=== PATIENT | female | born 1935 | race American Indian/Alaskan Native ===

== ENCOUNTER 2018-01-09 14:30 | Emergency (ER) | payer MEDICARE, OTHER ==
[2018-01-09] MEDS ORDERED: Sodium Chloride 0.9% 1,000 ML IV ONE (14:33)
--- NOTE | 2018-01-09 15:05 | EDM.PDOC ---
ED HPI GENERAL MEDICAL PROBLEM - General Stated Complaint: SLURRING WORDS Time Seen by Provider: 01/09/18 14:32 Source of Information: Reports: Patient History Limitations: Reports: No Limitations - History of Present Illness INITIAL COMMENTS - FREE TEXT/NARRATIVE: HISTORY AND PHYSICAL: History of present illness: Patient is a 82-year-old female who presents to the emergency room today as family members felt like she was slurring her speech this morning. She reports that she had went to bed last night and felt well. Did have some difficulty falling asleep but states this is normal for her. She states she slept in this morning, which is unusual for her. The daughter states they were having a conversation about baseball when she felt like her speech was slurred. The patient states she felt like she could not find the words to come out. This happened about 45 minutes prior to arrival. She states this resolved within a few minutes. Patient states it was because "my teeth were out" while trying to talk with her daughter (whom she lives with). She states she did wake up with bladder pain which felt like sharp needles to her pelvis. Denies any dysuria or difficulty starting her stream. Patient states she has degenerative disc disease and chronic neck pain which does cause frequent headaches. Currently has a mild headache, which she states is normal for her and has no new neurological symptoms at this time. She had no musculoskeletal weakness, confusion, change in vision or syncope. The patient is alert and oriented. She denies any fever, chills, chest pain, shortness of breath, cough. Denies any abdominal pain, nausea, vomiting, diarrhea or constipation. Past medical history of cardiac stents 2, hypertension and type 2 diabetes. Review of systems: As per history of present illness and below otherwise all systems reviewed and negative. Past medical history: As per history of present illness and as reviewed below otherwise noncontributory. Surgical history: As per history of present illness and as reviewed below otherwise noncontributory. Social history: No reported history of drug or alcohol abuse. Family history: As per history of present illness and as reviewed below otherwise noncontributory. Physical exam: General: Well-developed and well-nourished 82-year-old female. Alert and oriented. Nontoxic appearing and in no acute distress. HEENT: Atraumatic, normocephalic, pupils equal and reactive bilaterally, negative for conjunctival pallor or scleral icterus, mucous membranes moist, throat clear, neck supple, nontender, trachea midline. No drooling or trismus noted. No meningeal signs Lungs: Clear to auscultation, breath sounds equal bilaterally, chest nontender. Heart: S1S2, regular rate and rhythm without overt murmur Abdomen: Soft, nondistended, nontender. Negative for masses or hepatosplenomegaly. Negative for costovertebral tenderness. Pelvis: Stable nontender. Genitourinary: Deferred. Rectal: Deferred. Skin: Intact, warm, dry. No lesions or rashes noted. Extremities: Atraumatic, moves all per self without any weakness or deficits bilaterally. Strong pedal and radial pulses bilaterally. Capillary refill less than 3 seconds to distal extremities. She is negative for cords or calf pain. Neurovascular unremarkable. Neuro: Awake, alert, oriented. Cranial nerves II through XII unremarkable. Cerebellum unremarkable. Motor and sensory unremarkable throughout. Exam nonfocal. Notes: Blood sugar this morning upon awakening was 117 per family. EMS had a blood sugar reading of 238 after breakfast. GCS 0. No neurological deficets or muscular weakness noted. Vital signs are stable. Lab work currently is unremarkable. I'm still waiting on a urinalysis. The head CT is negative for intracranial bleeding, fractures or masses. Chest x-ray is negative. Patient states she has been asymptomatic and has no complaints since arrival to the emergency department. She continues to talk about a bladder mesh that she had for a bladder lift and believes that this was the cause of her abdominal/urinary symptoms this morning. Dr Smith was consulted on this case. He is agreeable to keeping this patient over night on telemetry for observation. Initially patient/family wanted to stay overnight for observation. Upon going in and talking with the patient that Dr. Smith have accepted her, she now declines. She is aware of the risks of leaving and accepts those risks. The daughter at the bedside joined in on this conversation and is also aware. She states she will return if symptoms return or new symptoms develop. She'll be discharged to home. Diagnostics: CBC, CMP, troponin, EKG, one view chest x-ray, head CT, PT/INR, UA Therapeutics: IV fluids Impression: TIA Plan: 1. You declined admission today. Please return to the emergency room if symptoms return or new symptoms develop. 2. Follow-up with your primary care provider next week. Return to the ED as needed and as discussed. Definitive disposition and diagnosis as appropriate pending reevaluation and review of above. Onset: Today Duration: Hour(s): Location: Reports: Generalized - Related Data Allergies Allergy/AdvReac Type Severity Reaction Status Date / Time codeine Allergy Unknown Cannot Verified 01/09/18 14:42 Remember Home Meds: Home Meds Aspirin 81 mg PO DAILY 07/03/16 [History] Folic Acid 1 mg PO DAILY 07/03/16 [History] Hydrochlorothiazide 25 mg PO DAILY 07/03/16 [History] Losartan [Cozaar] 50 mg PO DAILY 07/03/16 [History] Methotrexate 7.5 mg PO DAILY 07/03/16 [History] Multivitamin [Multivitamins] 1 cap PO DAILY 07/03/16 [History] Potassium Chloride [Klor-Con M20] 20 meq PO DAILY 07/03/16 [History] Prednisone [IJD: Prednisone] 5 mg PO DAILY 07/03/16 [History] Vitamin A/Vitamin D2 [[place] Cod Liver Oil Sfgl] 1 each PO DAILY 07/03/16 [ History] metFORMIN [Glucophage] 850 mg PO DAILY 07/03/16 [History] Cyanocobalamin (Vitamin B-12) [Vitamin B-12] 1 injection INJECT ASDIRECTED 01/09 [History] Past Medical History HEENT History: Reports: Impaired Vision Cardiovascular History: Reports: Hypertension Respiratory History: Reports: None Gastrointestinal History: Reports: Pancreatitis Genitourinary History: Reports: None ACTING INSTRUCTOR History: Reports: Musculoskeletal History: Reports: None Neurological History: Reports: CVA Psychiatric History: Reports: None Endocrine/Metabolic History: Reports: Diabetes, Type II Hematologic History: Reports: None Immunologic History: Reports: None Oncologic (Cancer) History: Reports: None Dermatologic History: Reports: None - Infectious Disease History Infectious Disease History: Reports: C-Difficile, Measles, Mumps - Past Surgical History Head Surgeries/Procedures: Reports: None HEENT Surgical History: Reports: None Cardiovascular Surgical History: Reports: Other (See Below) Respiratory Surgical History: Reports: None GI Surgical History: Reports: Cholecystectomy Female Surgical History: Reports: Hysterectomy Endocrine Surgical History: Reports: None Neurological Surgical History: Reports: None Musculoskeletal Surgical History: Reports: None Oncologic Surgical History: Reports: None Dermatological Surgical History: Reports: None Social & Family History - Family History Family Medical History: Noncontributory - Tobacco Use Smoking Status *Q: Never Smoker Second Hand Smoke Exposure: No - Caffeine Use Caffeine Use: Reports: Coffee - Recreational Drug Use Recreational Drug Use: No ED ROS GENERAL - Review of Systems Review Of Systems: ROS reveals no pertinent complaints other than HPI. ED EXAM, NEURO - Physical Exam Exam: See Below (See dictation) Course - Vital Signs Last Recorded V/S: Last Vital Signs Temp 98.0 F 01/09/18 14:44 Pulse 94 01/09/18 14:44 Resp 18 01/09/18 14:44 BP 122/89 01/09/18 14:44 Pulse Ox 96 01/09/18 14:44 - Orders/Labs/Meds Orders: Active Orders 24 hr Category Date Time Status EKG Documentation Completion [RC] STAT Care 01/09/18 14:33 Active Chest 1V Frontal [CR] Stat Exams 01/09/18 14:33 Taken Head wo Cont [CT] Stat Exams 01/09/18 14:33 Taken CULTURE URINE [RM] Stat Lab 01/09/18 16:28 Ordered UA W/MICROSCOPIC [URIN] Stat Lab 01/09/18 15:54 Ordered Sodium Chloride 0.9% [Normal Saline] 1,000 ml Med 01/09/18 14:33 Active IV STAT Medication Orders Sodium Chloride (Normal Saline) 1,000 mls @ 150 mls/hr IV STAT ONE Stop: 01/09/18 21:12 Last Admin: 01/09/18 14:52 Dose: 150 mls/hr Labs: Laboratory Tests 01/09/18 01/09/18 01/09/18 Range/Units 14:42 14:42 14:42 WBC 4.21 (4.0-11.0) K/uL RBC 4.13 L (4.30-5.90) M/uL Hgb 13.9 (12.0-16.0) g/dL Hct 40.2 (36.0-46.0) % MCV 97.3 (80.0-98.0) fL MCH 33.7 H (27.0-32.0) pg MCHC 34.6 (31.0-37.0) g/dL RDW Std Deviation 50.2 (28.0-62.0) fl RDW Coeff of Hugh 14 (11.0-15.0) % Plt Count 221 (150-400) K/uL MPV 9.80 (7.40-12.00) fL Neut % (Auto) 44.0 L (48.0-80.0) % Lymph % (Auto) 43.5 H (16.0-40.0) % [place] % (Auto) 9.7 (0.0-15.0) % Eos % (Auto) 2.6 (0.0-7.0) % Baso % (Auto) 0.2 (0.0-1.5) % Neut # (Auto) 1.9 (1.4-5.7) K/uL Lymph # (Auto) 1.8 (0.6-2.4) K/uL [place] # (Auto) 0.4 (0.0-0.8) K/uL Eos # (Auto) 0.1 (0.0-0.7) K/uL Baso # (Auto) 0.0 (0.0-0.1) K/uL Nucleated RBC % 0.0 /100WBC Nucleated RBCs # 0 K/uL INR 1.02 Sodium 141 (136-145) mmol/L Potassium 3.9 (3.5-5.1) mmol/L Chloride 102 (98-107) mmol/L Carbon Dioxide 30.5 (21.0-32.0) mmol/L BUN 17 (7.0-18.0) mg/dL Creatinine 1.3 H (0.6-1.0) mg/dL Est Cr Clr Drug Dosing 23.14 mL/min Estimated GFR (MDRD) 39.0 ml/min Glucose 243 H (74-106) mg/dL Calcium 10.7 H (8.5-10.1) mg/dL Total Bilirubin 0.5 (0.2-1.0) mg/dL AST 25 (15-37) IU/L ALT 49 (14-63) IU/L Alkaline Phosphatase 41 L (46-116) U/L Troponin I < 0.050 (0.000-0.056) ng/mL Total Protein 7.0 (6.4-8.2) g/dL Albumin 3.7 (3.4-5.0) g/dL Globulin 3.3 (2.0-3.5) g/dL Albumin/Globulin Ratio 1.1 L (1.3-2.8) Urine Color Urine Appearance Urine pH (5.0-8.0) Ur Specific [place] (1.001-1.035) Urine Protein (NEGATIVE) mg/dL Urine Glucose (UA) (NEGATIVE) mg/dL Urine Ketones (NEGATIVE) mg/dL Urine Occult Blood (NEGATIVE) Urine Nitrite (NEGATIVE) Urine Bilirubin (NEGATIVE) Urine Urobilinogen (<2.0) EU/dL Ur Leukocyte Esterase (NEGATIVE) Urine RBC (0-2/HPF) Urine WBC (0-5/HPF) Ur Epithelial Cells (NONE-FEW) Urine Bacteria (NEGATIVE) Urine Mucus (NONE-MOD) 01/09/18 Range/Units 15:54 WBC (4.0-11.0) K/uL RBC (4.30-5.90) M/uL Hgb (12.0-16.0) g/dL Hct (36.0-46.0) % MCV (80.0-98.0) fL MCH (27.0-32.0) pg MCHC (31.0-37.0) g/dL RDW Std Deviation (28.0-62.0) fl RDW Coeff of Hugh (11.0-15.0) % Plt Count (150-400) K/uL MPV (7.40-12.00) fL Neut % (Auto) (48.0-80.0) % Lymph % (Auto) (16.0-40.0) % [place] % (Auto) (0.0-15.0) % Eos % (Auto) (0.0-7.0) % Baso % (Auto) (0.0-1.5) % Neut # (Auto) (1.4-5.7) K/uL Lymph # (Auto) (0.6-2.4) K/uL [place] # (Auto) (0.0-0.8) K/uL Eos # (Auto) (0.0-0.7) K/uL Baso # (Auto) (0.0-0.1) K/uL Nucleated RBC % /100WBC Nucleated RBCs # K/uL INR Sodium (136-145) mmol/L Potassium (3.5-5.1) mmol/L Chloride (98-107) mmol/L Carbon Dioxide (21.0-32.0) mmol/L BUN (7.0-18.0) mg/dL Creatinine (0.6-1.0) mg/dL Est Cr Clr Drug Dosing mL/min Estimated GFR (MDRD) ml/min Glucose (74-106) mg/dL Calcium (8.5-10.1) mg/dL Total Bilirubin (0.2-1.0) mg/dL AST (15-37) IU/L ALT (14-63) IU/L Alkaline Phosphatase (46-116) U/L Troponin I (0.000-0.056) ng/mL Total Protein (6.4-8.2) g/dL Albumin (3.4-5.0) g/dL Globulin (2.0-3.5) g/dL Albumin/Globulin Ratio (1.3-2.8) Urine Color YELLOW Urine Appearance CLEAR Urine pH 5.5 (5.0-8.0) Ur Specific [place] 1.025 (1.001-1.035) Urine Protein NEGATIVE (NEGATIVE) mg/dL Urine Glucose (UA) 500 H (NEGATIVE) mg/dL Urine Ketones TRACE H (NEGATIVE) mg/dL Urine Occult Blood NEGATIVE (NEGATIVE) Urine Nitrite NEGATIVE (NEGATIVE) Urine Bilirubin NEGATIVE (NEGATIVE) Urine Urobilinogen 0.2 (<2.0) EU/dL Ur Leukocyte Esterase NEGATIVE (NEGATIVE) Urine RBC NONE SEEN (0-2/HPF) Urine WBC 0-2 (0-5/HPF) Ur Epithelial Cells FEW (NONE-FEW) Urine Bacteria FEW (NEGATIVE) Urine Mucus LIGHT (NONE-MOD) Meds: Medications Generic Name Dose Route Start Last Admin Trade Name Freq PRN Reason Stop Dose Admin Sodium Chloride 1,000 mls @ 150 mls/hr 01/09/18 14:33 01/09/18 14:52 Normal Saline IV 01/09/18 21:12 150 mls/hr STAT ONE Administration Departure - Departure Time of Disposition: 16:52 Disposition: Home, Self-Care 01 Clinical Impression: TIA (transient ischemic attack) Qualifiers: Transient cerebral ischemia type: unspecified Qualified Code(s): G45.9 - Transient cerebral ischemic attack, unspecified - Discharge Information Instructions: Transient Ischemic Attack, [id number] Referrals: PCP,Unknown [Primary Care Provider] - Forms: ED Department Discharge Additional Instructions: The following information is given to patients seen in the emergency department who are being discharged to home. This information is to outline your options for follow-up care. We provide all patients seen in our emergency department with a follow-up referral. The need for follow-up, as well as the timing and circumstances, are variable depending upon the specifics of your emergency department visit. If you don't have a primary care physician on staff, we will provide you with a referral. We always advise you to contact your personal physician following an emergency department visit to inform them of the circumstance of the visit and for follow-up with them and/or the need for any referrals to a consulting specialist. The emergency department will also refer you to a specialist when appropriate. This referral assures that you have the opportunity for follow-up care with a specialist. All of these measure are taken in an effort to provide you with optimal care, which includes your follow-up. Under all circumstances we always encourage you to contact your private physician who remains a resource for coordinating your care. When calling for follow-up care, please make the office aware that this follow-up is from your recent emergency room visit. If for any reason you are refused follow-up, please contact the Emergency Department at and asked to speak to the emergency department charge nurse. Primary Care [address] [place] [id number] 1. You declined admission today. Please return to the emergency room if symptoms return or new symptoms develop. 2. Follow-up with your primary care provider next week for re-evaluation. Return to the ED as needed and as discussed. - My Orders Last 24 Hours: My Active Orders 01/09/18 14:33 EKG Documentation Completion [RC] STAT Chest 1V Frontal [CR] Stat Head wo Cont [CT] Stat Sodium Chloride 0.9% [Normal Saline] 1,000 ml IV STAT 01/09/18 15:54 UA W/MICROSCOPIC [URIN] Stat 01/09/18 16:28 CULTURE URINE [RM] Stat - Assessment/Plan Last 24 Hours: My Active Orders 01/09/18 14:33 EKG Documentation Completion [RC] STAT Chest 1V Frontal [CR] Stat Head wo Cont [CT] Stat Sodium Chloride 0.9% [Normal Saline] 1,000 ml IV STAT 01/09/18 15:54 UA W/MICROSCOPIC [URIN] Stat 01/09/18 16:28 CULTURE URINE [RM] Stat
[2018-01-09 15:26] LABS: CHLORIDE,CL 102 mmol/L (98-107); SODIUM,NA 141 mmol/L (136-145)
[2018-01-09 17:10] VITALS: BP 148/93
--- NOTE | 2018-01-10 20:13 | CT ---
EXAM DATE: 01/09/18 PATIENT'S AGE: 82 Patient: ALISON TURNER Facility: [place], [place] Site . Site : 1935 Study: CT Head WO CONT [id number]/13/2018 3:07:43 PM Ordering Physician: Doctor Prieto Final Report: HISTORY: Slurred speech. Altered level of consciousness. TECHNIQUE: Noncontrast head CT. COMPARISON: 07/03/2016. FINDINGS: There is no acute intracranial hemorrhage or acute ischemic infarct. Areas of white matter low attenuation are nonspecific but likely reflect sequelae of chronic small vessel ischemic changes as before. There is mild generalized volume loss as before. No mass effect or midline shift. No hydrocephalus. No extra-axial collection or hematoma. The mastoid air cells are clear. Paranasal sinuses are clear. No acute skull fracture. IMPRESSION: 1. No acute intracranial disease. 2. Chronic small vessel ischemic changes and mild generalized volume loss as before. Dictated by Mika Elias MD @ 01/09/2018 3:48:31 PM Please note that all CT scans at this facility use dose modulation, iterative reconstruction, and/or weight-based dosing when appropriate to reduce radiation dose to as low as reasonably achievable. Dictated by: Mika Elias MD @ 01/09/2018 15:48:36 (Electronic Signature) Report Signed by Proxy. [facility] CENTERVincenzo
--- NOTE | 2018-01-10 20:14 | CR ---
EXAM DATE: 01/09/18 PATIENT'S AGE: 82 Patient: ALISON TURNER Facility: [place], [place] Site . Site : 1935 Study: XRay Chest [id number]/13/2018 3:08:48 PM Ordering Physician: Doctor Prieto Final Report: HISTORY: Altered level of consciousness. TECHNIQUE: One view of the chest. COMPARISON: 07/03/2016. FINDINGS: Cardiac size is upper limits of normal accounting for technique. There is no pulmonary vascular redistribution. No acute lung infiltrate or pulmonary edema. No pneumothorax or pleural effusion. Degenerative changes of the spine. IMPRESSION: No acute disease. Dictated by Mika Elias MD @ 01/09/2018 3:49:53 PM Dictated by: Mika Elias MD @ 01/09/2018 15:49:58 (Electronic Signature) Report Signed by Proxy. [facility]
== END 2018-01-09 17:09 | disposition home or self-care (01) ==
LOC: MW.ED 14:30 → MW.ICU 17:04 → UNDOADMOB 17:04
DX: G45.9 Transient cerebral ischemic attack, unspecified (principal); I10 Essential (primary) hypertension; E11.9 Type 2 diabetes mellitus without complications; Z88.5 Allergy status to narcotic agent; Z79.82 Long term (current) use of aspirin; Z79.899 Other long term (current) drug therapy
CPT/HCPCS: 36415; 70450; 71045; 80053; 81001; 84484; 85025; 85610; 87086; 93005; 96360; 96361; 99285; J7040

== ENCOUNTER 2019-05-13 15:31 | Emergency (ER) | payer MEDICARE, OTHER ==
[2019-05-13] MEDS ORDERED: Sodium Chloride 0.9% 10 ML Syringe FLUSH PRN (15:46)
[2019-05-13] MEDS ORDERED: Sodium Chloride 0.9% 2.5 ML Syringe FLUSH PRN (15:46)
[2019-05-13] MEDS ORDERED: Sodium Chloride 0.9% 500 ML IV ONE (15:49)
--- NOTE | 2019-05-13 15:53 | EDM.PDOC ---
ED HPI GENERAL MEDICAL PROBLEM - General Chief Complaint: General Stated Complaint: WEAKNESS Time Seen by Provider: 05/13/19 15:46 Source of Information: Reports: Patient History Limitations: Reports: No Limitations - History of Present Illness INITIAL COMMENTS - FREE TEXT/NARRATIVE: History of present illness: []Patient's head 2 day history of generalized weakness and pain in the left side of her temporal area when she gets up blurriness of her vision. She denies any fevers, chills, nausea, vomiting, diarrhea, headache or neck pain. Review of systems: As per history of present illness and below otherwise all systems reviewed and negative. Past medical history: As per history of present illness and as reviewed below otherwise noncontributory. Surgical history: As per history of present illness and as reviewed below otherwise noncontributory. Social history: No reported history of drug or alcohol abuse. Family history: As per history of present illness and as reviewed below otherwise noncontributory. Physical exam: General: Well developed, well nourished in NAD HEENT: Atraumatic, normocephalic, pupils reactive, negative for conjunctival pallor or scleral icterus, mucous membranes moist, throat clear, neck supple, nontender, trachea midline. Lungs: Clear to auscultation, breath sounds equal bilaterally, chest nontender. Heart: S1S2, regular, negative for clicks, rubs, or JVD. Abdomen: NABS, Soft, nondistended, nontender. Negative for masses or hepatosplenomegaly. Negative for costovertebral tenderness. Pelvis: Stable nontender. Genitourinary: Deferred. Rectal: Deferred. Extremities: Atraumatic, negative for cords or calf pain. Neurovascular unremarkable. Neuro: Awake, alert, oriented. Cranial nerves II through XII unremarkable. Cerebellum unremarkable. Motor and sensory unremarkable throughout. Exam nonfocal. Skin:warm and dry Diagnostics: CBC, chemistry, UA Therapeutics: Tylenol ED Course: Stable Impression: Scalp pain, generalized weakness Prescriptions: None Plan: Take tylenol as directed, follow up with your primary care physician, return to ER if symptoms worsen or change. Definitive disposition and diagnosis as appropriate pending reevaluation and review of above. headache , generalized left sided pain Pain Score (Numeric/FACES): 5 - Related Data Allergies Allergy/AdvReac Type Severity Reaction Status Date / Time codeine Allergy Unknown Cannot Verified 05/13/19 15:48 Remember Home Meds: Home Meds Aspirin 81 mg PO DAILY 07/03/16 [History] Folic Acid 1 mg PO DAILY 07/03/16 [History] Hydrochlorothiazide 25 mg PO DAILY 07/03/16 [History] Losartan [Cozaar] 50 mg PO DAILY 07/03/16 [History] Methotrexate 7.5 mg PO DAILY 07/03/16 [History] Multivitamin [Multivitamins] 1 cap PO DAILY 07/03/16 [History] Potassium Chloride [Klor-Con M20] 20 meq PO DAILY 07/03/16 [History] Prednisone [IJD: Prednisone] 5 mg PO DAILY 07/03/16 [History] Vitamin A/Vitamin D2 [[place] Cod Liver Oil Sfgl] 1 each PO DAILY 07/03/16 [ History] metFORMIN [Glucophage] 850 mg PO DAILY 07/03/16 [History] Cyanocobalamin (Vitamin B-12) [Vitamin B-12] 1 injection INJECT ASDIRECTED 01/09 [History] Past Medical History HEENT History: Reports: Impaired Vision Cardiovascular History: Reports: Hypertension Respiratory History: Reports: None Gastrointestinal History: Reports: Pancreatitis Genitourinary History: Reports: None [employer] History: Reports: Musculoskeletal History: Reports: None Neurological History: Reports: CVA Psychiatric History: Reports: None Endocrine/Metabolic History: Reports: Diabetes, Type II Hematologic History: Reports: None Immunologic History: Reports: None Oncologic (Cancer) History: Reports: None Dermatologic History: Reports: None - Infectious Disease History Infectious Disease History: Reports: None - Past Surgical History Head Surgeries/Procedures: Reports: None HEENT Surgical History: Reports: None Cardiovascular Surgical History: Reports: Other (See Below) Respiratory Surgical History: Reports: None GI Surgical History: Reports: Cholecystectomy Female Surgical History: Reports: Hysterectomy Endocrine Surgical History: Reports: None Neurological Surgical History: Reports: None Musculoskeletal Surgical History: Reports: None Oncologic Surgical History: Reports: None Dermatological Surgical History: Reports: None Social & Family History - Family History Family Medical History: Noncontributory - Tobacco Use Smoking Status *Q: Never Smoker - Caffeine Use Caffeine Use: Reports: Coffee - Recreational Drug Use Recreational Drug Use: No ED ROS GENERAL - Review of Systems Review Of Systems: See Below ED EXAM, GENERAL - Physical Exam Exam: See Below Course - Vital Signs Last Recorded V/S: Last Vital Signs Temp 96.3 F 05/13/19 15:44 Pulse 74 05/13/19 15:44 Resp 18 05/13/19 15:44 BP 150/77 H 05/13/19 15:44 Pulse Ox 96 05/13/19 15:44 - Orders/Labs/Meds Orders: Active Orders 24 hr Category Date Time Status Acetaminophen [Tylenol] Med 05/13/19 17:34 Once 650 mg PO NOW ONE Sodium Chloride 0.9% [Saline Flush] Med 05/13/19 15:46 Active 10 ml FLUSH ASDIRECTED PRN Sodium Chloride 0.9% [Saline Flush] Med 05/13/19 15:46 Active 2.5 ml FLUSH ASDIRECTED PRN Saline Lock Insert [OM.PC] Stat Oth 05/13/19 15:46 Ordered Medication Orders Sodium Chloride (Saline Flush) 10 ml FLUSH ASDIRECTED PRN PRN Reason: Keep Vein Open Sodium Chloride (Saline Flush) 2.5 ml FLUSH ASDIRECTED PRN PRN Reason: Keep Vein Open Labs: Laboratory Tests 05/13/19 05/13/19 05/13/19 Range/Units 16:03 16:03 17:00 WBC 3.59 L (4.0-11.0) K/uL RBC 3.90 L (4.30-5.90) M/uL Hgb 12.6 (12.0-16.0) g/dL Hct 37.6 (36.0-46.0) % MCV 96.4 (80.0-98.0) fL MCH 32.3 H (27.0-32.0) pg MCHC 33.5 (31.0-37.0) g/dL RDW Std Deviation 51.9 (28.0-62.0) fl RDW Coeff of Hugh 15 (11.0-15.0) % Plt Count 223 (150-400) K/uL MPV 10.10 (7.40-12.00) fL Neut % (Auto) 51.9 (48.0-80.0) % Lymph % (Auto) 34.8 (16.0-40.0) % Yates % (Auto) 11.1 (0.0-15.0) % Eos % (Auto) 1.9 (0.0-7.0) % Baso % (Auto) 0.3 (0.0-1.5) % Neut # (Auto) 1.9 (1.4-5.7) K/uL Lymph # (Auto) 1.3 (0.6-2.4) K/uL Yates # (Auto) 0.4 (0.0-0.8) K/uL Eos # (Auto) 0.1 (0.0-0.7) K/uL Baso # (Auto) 0.0 (0.0-0.1) K/uL Nucleated RBC % 0.0 /100WBC Nucleated RBCs # 0 K/uL Sodium 140 (136-145) mmol/L Potassium 4.8 (3.5-5.1) mmol/L Chloride 104 (98-107) mmol/L Carbon Dioxide 27.5 (21.0-32.0) mmol/L BUN 20 H (7.0-18.0) mg/dL Creatinine 1.3 H (0.6-1.0) mg/dL Est Cr Clr Drug Dosing 25.02 mL/min Estimated GFR (MDRD) 38.9 ml/min Glucose 148 H (74-106) mg/dL Calcium 10.2 H (8.5-10.1) mg/dL Total Bilirubin 0.5 (0.2-1.0) mg/dL AST 29 (15-37) IU/L ALT 35 (14-63) IU/L Alkaline Phosphatase 38 L (46-116) U/L Total Protein 6.8 (6.4-8.2) g/dL Albumin 3.7 (3.4-5.0) g/dL Globulin 3.1 (2.6-4.0) g/dL Albumin/Globulin Ratio 1.2 (0.9-1.6) Urine Color YELLOW Urine Appearance CLEAR Urine pH 6.5 (5.0-8.0) Ur Specific [place] 1.010 (1.001-1.035) Urine Protein NEGATIVE (NEGATIVE) mg/dL Urine Glucose (UA) NEGATIVE (NEGATIVE) mg/dL Urine Ketones NEGATIVE (NEGATIVE) mg/dL Urine Occult Blood NEGATIVE (NEGATIVE) Urine Nitrite NEGATIVE (NEGATIVE) Urine Bilirubin NEGATIVE (NEGATIVE) Urine Urobilinogen 0.2 (<2.0) EU/dL Ur Leukocyte Esterase NEGATIVE (NEGATIVE) Urine RBC 0-2 (0-2/HPF) Urine WBC 0-1 (0-5/HPF) Ur Epithelial Cells RARE (NONE-FEW) Urine Bacteria RARE (NEGATIVE) Meds: Medications Generic Name Dose Route Start Last Admin Trade Name Fretravis PRN Reason Stop Dose Admin Sodium Chloride 10 ml 05/13/19 15:46 Saline Flush FLUSH ASDIRECTED PRN Keep Vein Open Sodium Chloride 2.5 ml 05/13/19 15:46 Saline Flush FLUSH ASDIRECTED PRN Keep Vein Open Discontinued Medications Generic Name Dose Route Start Last Admin Trade Name Freq PRN Reason Stop Dose Admin Sodium Chloride 500 mls @ 999 mls/hr 05/13/19 15:49 05/13/19 17:00 Normal Saline IV 05/13/19 16:19 999 mls/hr .Bolus ONE Administration Departure - Departure Time of Disposition: 17:36 Disposition: Home, Self-Care 01 Condition: Good Clinical Impression: Generalized weakness, Scalp pain - Discharge Information *PRESCRIPTION DRUG MONITORING PROGRAM REVIEWED*: Not Applicable *COPY OF PRESCRIPTION DRUG MONITORING REPORT IN PATIENT BHARATHI: Not Applicable Referrals: PCP,None [Primary Care Provider] - Forms: ED Department Discharge Additional Instructions: The following information is given to patients seen in the emergency department who are being discharged to home. This information is to outline your options for follow-up care. We provide all patients seen in our emergency department with a follow-up referral. The need for follow-up, as well as the timing and circumstances, are variable depending upon the specifics of your emergency department visit. If you don't have a primary care physician on staff, we will provide you with a referral. We always advise you to contact your personal physician following an emergency department visit to inform them of the circumstance of the visit and for follow-up with them and/or the need for any referrals to a consulting specialist. The emergency department will also refer you to a specialist when appropriate. This referral assures that you have the opportunity for follow-up care with a specialist. All of these measure are taken in an effort to provide you with optimal care, which includes your follow-up. Under all circumstances we always encourage you to contact your private physician who remains a resource for coordinating your care. When calling for follow-up care, please make the office aware that this follow-up is from your recent emergency room visit. If for any reason you are refused follow-up, please contact the [facility] Emergency Department at and asked to speak to the emergency department charge nurse. Take meds as directed, follow up with your primary care physician, return to ER if symptoms worsen or change. [facility] [place] [id number] - My Orders Last 24 Hours: My Active Orders 05/13/19 15:46 Sodium Chloride 0.9% [Saline Flush] 10 ml FLUSH ASDIRECTED PRN Sodium Chloride 0.9% [Saline Flush] 2.5 ml FLUSH ASDIRECTED PRN Saline Lock Insert [OM.PC] Stat 05/13/19 17:34 Acetaminophen [Tylenol] 650 mg PO NOW ONE - Assessment/Plan Last 24 Hours: My Active Orders 05/13/19 15:46 Sodium Chloride 0.9% [Saline Flush] 10 ml FLUSH ASDIRECTED PRN Sodium Chloride 0.9% [Saline Flush] 2.5 ml FLUSH ASDIRECTED PRN Saline Lock Insert [OM.PC] Stat 05/13/19 17:34 Acetaminophen [Tylenol] 650 mg PO NOW ONE
[2019-05-13 16:44] LABS: CARBON DIOXIDE,CO2 27.5 mmol/L (21.0-32.0); POTASSIUM,K 4.8 mmol/L (3.5-5.1)
[2019-05-13] MEDS ORDERED: Acetaminophen 325 MG Tab PO ONE (17:34)
[2019-05-13 17:45] VITALS: BP 147/75; PULSE 76
== END 2019-05-13 18:00 | disposition home or self-care (01) ==
LOC: MW.ED 15:31
DX: R53.1 Weakness (principal); R51 Headache; Z88.5 Allergy status to narcotic agent; I10 Essential (primary) hypertension; E11.9 Type 2 diabetes mellitus without complications; Z79.84 Long term (current) use of oral hypoglycemic drugs; Z79.82 Long term (current) use of aspirin; Z79.899 Other long term (current) drug therapy
CPT/HCPCS: 36415; 80053; 81001; 85025; 93005; 96360; 99284; A9270; J7040

== ENCOUNTER 2019-05-15 09:25 | Emergency (ER) | payer MEDICARE, OTHER ==
[2019-05-15] MEDS ORDERED: Sodium Chloride 0.9% 10 ML Syringe FLUSH PRN (09:54)
[2019-05-15] MEDS ORDERED: Morphine 2 MG/ML Syringe IVPUSH ONE (09:54)
[2019-05-15] MEDS ORDERED: Ondansetron 4 MG/2 ML SDV IVPUSH ONE (09:54)
[2019-05-15] MEDS ORDERED: Sodium Chloride 0.9% 2.5 ML Syringe FLUSH PRN (09:54)
[2019-05-15] MEDS ORDERED: Sodium Chloride 0.9% 1,000 ML IV ONE (09:54)
--- NOTE | 2019-05-15 09:54 | EDM.PDOC ---
ED HPI GENERAL MEDICAL PROBLEM - General Stated Complaint: NECK PAIN, WEAKNESS AND DIZZY Time Seen by Provider: 05/15/19 09:26 Source of Information: Reports: Patient History Limitations: Reports: No Limitations - History of Present Illness INITIAL COMMENTS - FREE TEXT/NARRATIVE: History of present illness: []Patient was here 2 days ago with the same symptoms of generalized weakness and neck pain and pain on the left side of her forehead and temporal when she turns her head. She denies any nausea, vomiting, fevers, chills, trauma for numbness and tingling. She also complains of a rash under her left breast. Review of systems: As per history of present illness and below otherwise all systems reviewed and negative. Past medical history: As per history of present illness and as reviewed below otherwise noncontributory. Surgical history: As per history of present illness and as reviewed below otherwise noncontributory. Social history: No reported history of drug or alcohol abuse. Family history: As per history of present illness and as reviewed below otherwise noncontributory. Physical exam: General: Well developed, well nourished in NAD HEENT: Atraumatic, normocephalic, pupils reactive, negative for conjunctival pallor or scleral icterus, mucous membranes moist, throat clear, neck supple, nontender, trachea midline. Lungs: Clear to auscultation, breath sounds equal bilaterally, chest nontender. Heart: S1S2, regular, negative for clicks, rubs, or JVD. Abdomen: NABS, Soft, nondistended, nontender. Negative for masses or hepatosplenomegaly. Negative for costovertebral tenderness. Pelvis: Stable nontender. Genitourinary: Deferred. Rectal: Deferred. Extremities: Atraumatic, negative for cords or calf pain. Neurovascular unremarkable. Neuro: Awake, alert, oriented. Cranial nerves II through XII unremarkable. Cerebellum unremarkable. Motor and sensory unremarkable throughout. Exam nonfocal. Skin:warm and dry Diagnostics: CT head and neck both normal no acute ischemic changes, bleed or fractures sedimentation rate and CRP added to labs that were checked 2 days ago which were both negative Therapeutics: Morphine, Zofran for pain IV hydrated ED Course: Stable Impression: Generalized weakness, tinea corporis Prescriptions: nystatin powder Plan: Take meds as directed, follow up with your primary care physician, return to ER if symptoms worsen or change. Definitive disposition and diagnosis as appropriate pending reevaluation and review of above. Neck/Left [place] Pain Score (Numeric/FACES): 8 - Related Data Allergies Allergy/AdvReac Type Severity Reaction Status Date / Time codeine Allergy Unknown Cannot Verified 05/15/19 09:49 Remember Home Meds: Home Meds Aspirin 81 mg PO DAILY 07/03/16 [History] Folic Acid 1 mg PO DAILY 07/03/16 [History] Hydrochlorothiazide 25 mg PO DAILY 07/03/16 [History] Losartan [Cozaar] 50 mg PO DAILY 07/03/16 [History] Methotrexate 7.5 mg PO DAILY 07/03/16 [History] Multivitamin [Multivitamins] 1 cap PO DAILY 07/03/16 [History] Potassium Chloride [Klor-Con M20] 20 meq PO DAILY 07/03/16 [History] Prednisone [IJD: Prednisone] 5 mg PO DAILY 07/03/16 [History] Vitamin A/Vitamin D2 [[place] Cod Liver Oil Sfgl] 1 each PO DAILY 07/03/16 [ History] metFORMIN [Glucophage] 850 mg PO DAILY 07/03/16 [History] Cyanocobalamin (Vitamin B-12) [Vitamin B-12] 1 injection INJECT ASDIRECTED 01/09 [History] Nystatin 30 gm TP TID #1 bottle 05/15/19 [Rx] Past Medical History HEENT History: Reports: Impaired Vision Cardiovascular History: Reports: Hypertension Respiratory History: Reports: None Gastrointestinal History: Reports: Pancreatitis Genitourinary History: Reports: None G[employer]PE[employer] History: Reports: Musculoskeletal History: Reports: None Neurological History: Reports: CVA Psychiatric History: Reports: None Endocrine/Metabolic History: Reports: Diabetes, Type II Hematologic History: Reports: None Immunologic History: Reports: None Oncologic (Cancer) History: Reports: None Dermatologic History: Reports: None - Infectious Disease History Infectious Disease History: Reports: None - Past Surgical History Head Surgeries/Procedures: Reports: None HEENT Surgical History: Reports: None Cardiovascular Surgical History: Reports: Other (See Below) Respiratory Surgical History: Reports: None GI Surgical History: Reports: Cholecystectomy Female Surgical History: Reports: Hysterectomy Endocrine Surgical History: Reports: None Neurological Surgical History: Reports: None Musculoskeletal Surgical History: Reports: None Oncologic Surgical History: Reports: None Dermatological Surgical History: Reports: None Social & Family History - Family History Family Medical History: Noncontributory - Caffeine Use Caffeine Use: Reports: Coffee ED ROS GENERAL - Review of Systems Review Of Systems: See Below ED EXAM, NEURO - Physical Exam Exam: See Below Course - Vital Signs Last Recorded V/S: Last Vital Signs Temp 98.0 F 05/15/19 09:49 Pulse 75 05/15/19 10:20 Resp 18 05/15/19 10:20 BP 160/72 H 05/15/19 10:20 Pulse Ox 98 05/15/19 10:20 - Orders/Labs/Meds Orders: Active Orders 24 hr Category Date Time Status Sodium Chloride 0.9% [Saline Flush] Med 05/15/19 09:54 Active 10 ml FLUSH ASDIRECTED PRN Sodium Chloride 0.9% [Saline Flush] Med 05/15/19 09:54 Active 2.5 ml FLUSH ASDIRECTED PRN Saline Lock Insert [OM.PC] Stat Oth 05/15/19 09:54 Ordered Medication Orders Sodium Chloride (Saline Flush) 10 ml FLUSH ASDIRECTED PRN PRN Reason: Keep Vein Open Last Admin: 05/15/19 10:14 Dose: 10 ml Sodium Chloride (Saline Flush) 2.5 ml FLUSH ASDIRECTED PRN PRN Reason: Keep Vein Open Last Admin: 05/15/19 10:15 Dose: 2.5 ml Labs: Laboratory Tests 05/15/19 05/15/19 Range/Units 10:15 10:15 ESR 9 (0-29) mm/hr C-Reactive Protein <0.20 (0.00-0.90) mg/dL Meds: Medications Generic Name Dose Route Start Last Admin Trade Name Freq PRN Reason Stop Dose Admin Sodium Chloride 10 ml 05/15/19 09:54 05/15/19 10:14 Saline Flush FLUSH 10 ml ASDIRECTED PRN Administration Keep Vein Open Sodium Chloride 2.5 ml 05/15/19 09:54 05/15/19 10:15 Saline Flush FLUSH 2.5 ml ASDIRECTED PRN Administration Keep Vein Open Discontinued Medications Generic Name Dose Route Start Last Admin Trade Name Freq PRN Reason Stop Dose Admin Sodium Chloride 1,000 mls @ 999 mls/hr 05/15/19 09:54 05/15/19 10:14 Normal Saline IV 05/15/19 10:54 999 mls/hr .Bolus ONE Administration Morphine Sulfate 2 mg 05/15/19 09:54 05/15/19 10:15 Morphine IVPUSH 05/15/19 09:55 2 mg ONETIME ONE Administration Ondansetron HCl 4 mg 05/15/19 09:54 05/15/19 10:15 Zofran IVPUSH 05/15/19 09:55 4 mg ONETIME ONE Administration Departure - Departure Time of Disposition: 11:06 Disposition: Home, Self-Care 01 Condition: Good Clinical Impression: Generalized weakness, Dizziness, Forehead pain, Tinea corporis - Discharge Information *PRESCRIPTION DRUG MONITORING PROGRAM REVIEWED*: Not Applicable *COPY OF PRESCRIPTION DRUG MONITORING REPORT IN PATIENT BHARATHI: Not Applicable Prescriptions: Nystatin 30 gm TP TID #1 bottle Referrals: PCP,Unknown [Primary Care Provider] - Additional Instructions: The following information is given to patients seen in the emergency department who are being discharged to home. This information is to outline your options for follow-up care. We provide all patients seen in our emergency department with a follow-up referral. The need for follow-up, as well as the timing and circumstances, are variable depending upon the specifics of your emergency department visit. If you don't have a primary care physician on staff, we will provide you with a referral. We always advise you to contact your personal physician following an emergency department visit to inform them of the circumstance of the visit and for follow-up with them and/or the need for any referrals to a consulting specialist. The emergency department will also refer you to a specialist when appropriate. This referral assures that you have the opportunity for follow-up care with a specialist. All of these measure are taken in an effort to provide you with optimal care, which includes your follow-up. Under all circumstances we always encourage you to contact your private physician who remains a resource for coordinating your care. When calling for follow-up care, please make the office aware that this follow-up is from your recent emergency room visit. If for any reason you are refused follow-up, please contact the [facility] Emergency Department at and asked to speak to the emergency department charge nurse. Take meds as directed, follow up with your primary care physician, return to ER if symptoms worsen or change. Follow-up with PMD and/or neurology [facility] [address] [address] [facility] [address] [place] [address], [address] [place] [address] - My Orders Last 24 Hours: My Active Orders 05/15/19 09:54 Sodium Chloride 0.9% [Saline Flush] 10 ml FLUSH ASDIRECTED PRN Sodium Chloride 0.9% [Saline Flush] 2.5 ml FLUSH ASDIRECTED PRN Saline Lock Insert [OM.PC] Stat - Assessment/Plan Last 24 Hours: My Active Orders 05/15/19 09:54 Sodium Chloride 0.9% [Saline Flush] 10 ml FLUSH ASDIRECTED PRN Sodium Chloride 0.9% [Saline Flush] 2.5 ml FLUSH ASDIRECTED PRN Saline Lock Insert [OM.PC] Stat
--- NOTE | 2019-05-15 10:49 | CT ---
HISTORY: Dizziness. TECHNIQUE: Noncontrast head CT. COMPARISON: No prior. FINDINGS: There is no acute intracranial hemorrhage or acute ischemic infarct. Generalized cerebral and cerebellar volume loss. Areas of white matter low attenuation which are nonspecific but likely reflect sequelae of chronic small vessel ischemic changes. No mass effect or midline shift. No hydrocephalus. No extra-axial collection or hematoma. Mastoid air cells are clear. Mucosal thickening involving ethmoid air cells. No acute skull fracture. IMPRESSION: 1. Areas of white matter low attenuation which are nonspecific but likely reflect sequelae of chronic small vessel ischemic changes. 2. Generalized cerebral and cerebellar volume loss. 3. No acute intracranial hemorrhage or acute ischemic infarct. Dictated by Mika Elias MD @ 05/15/2019 10:47:34 AM Please note that all CT scans at this facility use dose modulation, iterative reconstruction, and/or weight-based dosing when appropriate to reduce radiation dose to as low as reasonably achievable. Dictated by: Mika Elias MD @ 05/15/2019 10:47:38 (Electronically Signed)
--- NOTE | 2019-05-15 10:55 | CT ---
HISTORY: Neck pain. TECHNIQUE: Noncontrast CT cervical spine. COMPARISON: No prior. FINDINGS: There is no acute cervical fracture or significant cervical malalignment. Degenerative disc and joint disease is present within the cervical spine. No abnormal prevertebral soft tissue swelling. - At C1-C2, there is advanced arthrosis of the articulation of the dens with the anterior arch of C1. At C2-C3, ankylosis about the posterior elements and periphery of the disc space. No canal or foraminal stenosis. At C3-C4, shallow disc-osteophyte complex without canal stenosis. No significant foraminal stenosis. At C4-C5, disc-osteophyte complex with mild ventral thecal sac effacement. Moderate foraminal narrowing. At C5-C6, disc-osteophyte complex with mild ventral thecal sac effacement. Moderate severe right and mild left foraminal narrowing. At C6-C7, disc-osteophyte complex with mild ventral thecal sac effacement. Moderate left foraminal stenosis. Right neural foramina patent. At C7-T1, no canal or foraminal stenosis. IMPRESSION: 1. No acute cervical fracture or cervical malalignment. 2. 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 Dictated by Mika Elias MD @ 05/15/2019 10:53:19 AM Please note that all CT scans at this facility use dose modulation, iterative reconstruction, and/or weight-based dosing when appropriate to reduce radiation dose to as low as reasonably achievable. Dictated by: Mika Elias MD @ 05/15/2019 10:53:23 (Electronically Signed)
[2019-05-15 11:19] VITALS: BP 143/73; PULSE 67
== END 2019-05-15 11:19 | disposition home or self-care (01) ==
LOC: MW.ED 09:25
DX: R53.1 Weakness (principal); R51 Headache; B35.4 Tinea corporis; I10 Essential (primary) hypertension; E11.9 Type 2 diabetes mellitus without complications; Z88.5 Allergy status to narcotic agent; Z79.82 Long term (current) use of aspirin; Z79.84 Long term (current) use of oral hypoglycemic drugs; Z79.899 Other long term (current) drug therapy
CPT/HCPCS: 70450; 72125; 85652; 86140; 96361; 96374; 96375; 99285; J2270; J2405; J7040; 99283

== ENCOUNTER 2021-03-14 13:47 | Emergency (ER) | payer MEDICARE, OTHER ==
[2021-03-14] MEDS ORDERED: Sodium Chloride 0.9% 2.5 ML Syringe FLUSH PRN (13:49)
[2021-03-14] MEDS ORDERED: Sodium Chloride 0.9% 10 ML Syringe FLUSH PRN (13:49)
--- NOTE | 2021-03-14 13:53 | EDM.PDOC ---
ED HPI GENERAL MEDICAL PROBLEM - General Stated Complaint: STROKE Time Seen by Provider: 03/14/21 13:49 - History of Present Illness INITIAL COMMENTS - FREE TEXT/NARRATIVE: History of present illness: [] The patient feels weak. She woke up this way. She went to bed at 2200 hrs. and that was the last time seen normal. The weakness is generalized and primarily affects her ability to walk. She feels like she is unsteady when she tries to walk. The patient had a stroke with similar symptoms in the past according to her. That was about 2 years ago. Her only blood thinner is baby aspirin. Review of systems: As per history of present illness and below otherwise all systems reviewed and negative. Past medical history: As per history of present illness and as reviewed below otherwise noncontributory. Surgical history: As per history of present illness and as reviewed below otherwise noncontributory. Social history: No reported history of drug or alcohol abuse. Family history: As per history of present illness and as reviewed below otherwise noncontributory. Physical exam: Constitutional - well developed, well-nourished and in no acute distress HEENT - normocephalic, no evidence of trauma - external nose and mouth normal - no mass in neck and no JVD - mucosae moist EYES - full EOM, PERRL, no icterus - no evidence of inflammation, injection, or drainage Respiratory - no respiratory distress, equal bilateral expansion, lungs clear to auscultation and no abnormal lung sounds Cardiovascular - Regular Rhythm with S1 and S2 appreciated and no murmur, gallop or rub. GI - abdomen soft without distension or organomegaly - normal bowel sounds - no guard or rebound Musculoskeletal no gross deformity of long bones or joints - no tenderness, swelling or edema Neurologic -my customary neurologic exam was negative. I did not retest her gait. She was noticed walking in to walk without any ataxia. Alert and oriented times four - CN II-XII grossly intact - motor sensory and coordination symmetrically normal Psychiatric - appropriate mood and affect with normal thought content Hematologic - No petechiae or purpura - mucosa appropriate color and sclera not pale - normal nail bed color and refill Integument - no rash or evidence of trauma - normal turgor Diagnostics: [] Therapeutics: [] Impression: [] Plan: [] Definitive disposition and diagnosis as appropriate pending reevaluation and review of above. - Related Data Allergies Allergy/AdvReac Type Severity Reaction Status Date / Time codeine Allergy Unknown Cannot Verified 03/14/21 14:25 Remember Latex, Natural Rubber Allergy Hives Verified 03/14/21 14:25 Home Meds: Home Meds Aspirin 81 mg PO DAILY 07/03/16 [History] Folic Acid 1 mg PO DAILY 07/03/16 [History] Hydrochlorothiazide 25 mg PO DAILY 07/03/16 [History] Losartan [Cozaar] 50 mg PO DAILY 07/03/16 [History] Methotrexate 7.5 mg PO DAILY 07/03/16 [History] Multivitamin [Multivitamins] 1 cap PO DAILY 07/03/16 [History] Potassium Chloride [Klor-Con M20] 20 meq PO DAILY 07/03/16 [History] Prednisone [IJD: Prednisone] 5 mg PO DAILY 07/03/16 [History] Vitamin A/Vitamin D2 [[place] Cod Liver Oil Sfgl] 1 each PO DAILY 07/03/16 [History] metFORMIN [Glucophage] 850 mg PO DAILY 07/03/16 [History] Cyanocobalamin (Vitamin B-12) [Vitamin B-12] 1 injection INJECT ASDIRECTED 01/09/18 [History] Nystatin 30 gm TP TID #1 bottle 05/15/19 [Rx] Past Medical History HEENT History: Reports: Impaired Vision Cardiovascular History: Reports: Hypertension Respiratory History: Reports: None Gastrointestinal History: Reports: Pancreatitis Genitourinary History: Reports: None DIRECT CARE SUPERVISOR History: Reports: Musculoskeletal History: Reports: None Neurological History: Reports: CVA Psychiatric History: Reports: None Endocrine/Metabolic History: Reports: Diabetes, Type II Hematologic History: Reports: None Immunologic History: Reports: None Oncologic (Cancer) History: Reports: None Dermatologic History: Reports: None - Infectious Disease History Infectious Disease History: Reports: None - Past Surgical History Head Surgeries/Procedures: Reports: None HEENT Surgical History: Reports: None Cardiovascular Surgical History: Reports: Other (See Below) Respiratory Surgical History: Reports: None GI Surgical History: Reports: Cholecystectomy Female Surgical History: Reports: Hysterectomy Endocrine Surgical History: Reports: None Neurological Surgical History: Reports: None Musculoskeletal Surgical History: Reports: None Oncologic Surgical History: Reports: None Dermatological Surgical History: Reports: None Social & Family History - Family History Family Medical History: No Pertinent Family History - Caffeine Use Caffeine Use: Reports: Coffee ED ROS GENERAL - Review of Systems Review Of Systems: Comprehensive ROS is negative, except as noted in HPI. ED EXAM, GENERAL - Physical Exam Exam: See Below Free Text/Narrative:: My physical exam is in the HPI #1 Interpretation EKG Interpretation Comments: EKG at 1430 hrs. sinus rhythm heart rate 82 MD 131 QT duration 450 axis -78 QRS late transition R wave and very small R wave in inferior leads ST and T normal compared to 05/03/2019 no change impression no acute injury Course - Vital Signs Last Recorded V/S: Last Vital Signs Temp 36.1 C 03/14/21 13:47 Pulse 84 03/14/21 15:00 Resp 15 03/14/21 14:45 BP 132/78 03/14/21 15:00 Pulse Ox 95 03/14/21 15:00 - Orders/Labs/Meds Orders: Active Orders 24 hr Category Date Time Status EKG Documentation Completion [RC] AM Care 03/14/21 13:49 Active UA W/JAIME RFLX IF INDICATED [URIN] Stat Lab 03/14/21 13:50 Ordered Sodium Chloride 0.9% [Saline Flush] Med 03/14/21 13:49 Active 10 ml FLUSH ASDIRECTED PRN Sodium Chloride 0.9% [Saline Flush] Med 03/14/21 13:49 Active 2.5 ml FLUSH ASDIRECTED PRN Saline Lock Insert [OM.PC] Stat Oth 03/14/21 13:49 Ordered Medication Orders Sodium Chloride (Sodium Chloride 0.9% 10 Ml Syringe) 10 ml FLUSH ASDIRECTED PRN PRN Reason: Keep Vein Open Last Admin: 03/14/21 14:20 Dose: 10 ml Documented by: [email or web address] Sodium Chloride (Sodium Chloride 0.9% 2.5 Ml Syringe) 2.5 ml FLUSH ASDIRECTED PRN PRN Reason: Keep Vein Open Last Admin: 03/14/21 14:20 Dose: 2.5 ml Documented by: [id number] Labs: Laboratory Tests 03/14/21 03/14/21 03/14/21 Range/Units 13:50 13:50 13:50 WBC 5.51 (4.0-11.0) K/uL RBC 4.19 L (4.30-5.90) M/uL Hgb 13.6 (12.0-16.0) g/dL Hct 39.6 (36.0-46.0) % MCV 94.5 (80.0-98.0) fL MCH 32.5 H (27.0-32.0) pg MCHC 34.3 (31.0-37.0) g/dL RDW Std Deviation 49.2 (28.0-62.0) fl RDW Coeff of Hugh 15 (11.0-15.0) % Plt Count 206 (150-400) K/uL MPV 10.50 (7.40-12.00) fL Neut % (Auto) 55.9 (48.0-80.0) % Lymph % (Auto) 32.1 (16.0-40.0) % [place] % (Auto) 9.8 (0.0-15.0) % Eos % (Auto) 1.8 (0.0-7.0) % Baso % (Auto) 0.4 (0.0-1.5) % Neut # (Auto) 3.1 (1.4-5.7) K/uL Lymph # (Auto) 1.8 (0.6-2.4) K/uL [place] # (Auto) 0.5 (0.0-0.8) K/uL Eos # (Auto) 0.1 (0.0-0.7) K/uL Baso # (Auto) 0.0 (0.0-0.1) K/uL Nucleated RBC % 0.0 /100WBC Nucleated RBCs # 0 K/uL INR 0.98 APTT 22.0 (18.6-31.3) SEC Sodium 139 (136-145) mmol/L Potassium 3.8 (3.5-5.1) mmol/L Chloride 102 (98-107) mmol/L Carbon Dioxide 25.4 (21.0-32.0) mmol/L BUN 19 H (7.0-18.0) mg/dL Creatinine 1.3 H (0.6-1.0) mg/dL Est Cr Clr Drug Dosing TNP Estimated GFR (MDRD) 38.7 ml/min Glucose 176 H (74-106) mg/dL Calcium 9.8 (8.5-10.1) mg/dL Magnesium 1.8 (1.8-2.4) mg/dL Total Bilirubin 0.5 (0.2-1.0) mg/dL AST 19 (15-37) IU/L ALT 34 (14-63) IU/L Alkaline Phosphatase 37 L (46-116) U/L Troponin I < 0.050 (0.000-0.056) ng/mL Total Protein 7.1 (6.4-8.2) g/dL Albumin 4.2 (3.4-5.0) g/dL Globulin 2.9 (2.6-4.0) g/dL Albumin/Globulin Ratio 1.4 (0.9-1.6) TSH 3rd Generation 3.26 (0.36-3.74) uIU/mL Meds: Medications Generic Name Dose Route Start Last Admin Trade Name Freq PRN Reason Stop Dose Admin Sodium Chloride 10 ml 03/14/21 13:49 03/14/21 14:20 Sodium Chloride 0.9% 10 Ml Syringe FLUSH 10 ml ASDIRECTED PRN Administration Keep Vein Open Sodium Chloride 2.5 ml 03/14/21 13:49 03/14/21 14:20 Sodium Chloride 0.9% 2.5 Ml Syringe FLUSH 2.5 ml ASDIRECTED PRN Administration Keep Vein Open Discontinued Medications Generic Name Dose Route Start Last Admin Trade Name Freq PRN Reason Stop Dose Admin Iopamidol 100 ml 03/14/21 14:13 03/14/21 14:13 Iopamidol 755 Mg/Ml 500 Ml Multipack Bottle IVPUSH 03/14/21 14:14 100 ml ONETIME ONE Administration Departure - Departure Time of Disposition: 15:24 Disposition: Home, Self-Care 01 Condition: Good Clinical Impression: Fatigue - Discharge Information Instructions: Weakness, [id number], Fatigue Referrals: Autumn Araujo MD [Primary Care Provider] - Additional Instructions: Drink plenty of fluids. Eat good nutrition. Make sure you drink soups and electrolytes instead of just plain water. Continue baby aspirin and have your own doctor review the CT reports and see if he wants to refer you to neurology ER increase your aspirin dose. [facility] - Primary [facility] [address] [place] [id number] [facility] [address] [place] [address] The following information is given to patients seen in the emergency department who are being discharged to home. This information is to outline your options for follow-up care. We provide all patients seen in our emergency department with a follow-up referral. The need for follow-up, as well as the timing and circumstances, are variable depending upon the specifics of your emergency department visit. If you don't have a primary care physician on staff, we will provide you with a referral. We always advise you to contact your personal physician following an emergency department visit to inform them of the circumstance of the visit and for follow-up with them and/or the need for any referrals to a consulting specialist. The emergency department will also refer you to a specialist when appropriate. This referral assures that you have the opportunity for follow-up care with a specialist. All of these measure are taken in an effort to provide you with optimal care, which includes your follow-up. Under all circumstances we always encourage you to contact your private physician who remains a resource for coordinating your care. When calling for follow-up care, please make the office aware that this follow-up is from your recent emergency room visit. If for any reason you are refused follow-up, please contact the [facility] Emergency Department at and asked to speak to the emergency department charge nurse. Sepsis Event Note (ED) - Focused Exam Vital Signs: Vital Signs Temp Pulse Resp BP Pulse Ox 03/14/21 15:00 84 132/78 95 03/14/21 14:45 84 15 137/84 94 L 03/14/21 14:30 81 16 138/80 95 03/14/21 14:05 91 15 134/72 99 03/14/21 13:47 36.1 C 92 16 150/88 H 96 - My Orders Last 24 Hours: My Active Orders 03/14/21 13:49 EKG Documentation Completion [RC] AM Sodium Chloride 0.9% [Saline Flush] 10 ml FLUSH ASDIRECTED PRN Sodium Chloride 0.9% [Saline Flush] 2.5 ml FLUSH ASDIRECTED PRN Saline Lock Insert [OM.PC] Stat 03/14/21 13:50 UA W/JAIME RFLX IF INDICATED [URIN] Stat - Assessment/Plan Last 24 Hours: My Active Orders 03/14/21 13:49 EKG Documentation Completion [RC] AM Sodium Chloride 0.9% [Saline Flush] 10 ml FLUSH ASDIRECTED PRN Sodium Chloride 0.9% [Saline Flush] 2.5 ml FLUSH ASDIRECTED PRN Saline Lock Insert [OM.PC] Stat 03/14/21 13:50 UA W/JAIME RFLX IF INDICATED [URIN] Stat
[2021-03-14] MEDS ORDERED: Iopamidol 755 MG/ML 500 ML Multipack Bottle IVPUSH ONE (14:13)
--- NOTE | 2021-03-14 14:26 | CT ---
DATE: 03/14/2021 CLINICAL HISTORY: Patient with focal neurological deficits. TECHNIQUE: Standard CT scanning of the head was performed. COMPARISON: 05/15/2019 FINDINGS: There is no intracranial hemorrhage. There is no territorial infarction. There are moderate microangiopathic changes. There is diffuse parenchymal volume loss. There is no mass effect or midline shift. The calvarium is unremarkable. The orbits are unremarkable. The paranasal sinuses are unremarkable. The mastoid air cells are unremarkable. The soft tissues are unremarkable. IMPRESSION: 1. No intracranial hemorrhage or territorial infarction. 2. Moderate microangiopathic changes and diffuse parenchymal volume loss. Please note that all CT scans at this facility use dose modulation, iterative reconstruction, and/or weight-based dosing when appropriate to reduce radiation dose to as low as reasonably achievable. Dictated by Sonya Fontana MD @ 03/14/2021 2:25:[address] Sonya Fontana @ Mar 14 2021 2:25PM
[2021-03-14 14:28] LABS: BLOOD UREA NITROGEN,BUN 19 mg/dL (7.0-18.0); CARBON DIOXIDE,CO2 25.4 mmol/L (21.0-32.0); CHLORIDE,CL 102 mmol/L (98-107); GLUCOSE RANDOM 176 mg/dL (74-106); POTASSIUM,K 3.8 mmol/L (3.5-5.1); SODIUM,NA 139 mmol/L (136-145)
--- NOTE | 2021-03-14 14:37 | CT ---
DATE: 03/14/2021 CLINICAL HISTORY: Patient with focal neurological deficits. TECHNIQUE: Standard helical CT image acquisition through the head and neck was performed after intravenous contrast bolus enhancement. Multiplanar reconstructed images were performed and interpreted. COMPARISON: CT same day, MRA 06/13/2019 FINDINGS: There is no proximal intracranial large vessel occlusion. There is mild diffuse intracranial atherosclerosis. The origins of the great vessels from the aortic arch are patent. The origin of the right vertebral artery is patent. The origin of the left vertebral artery is patent. The common carotid arteries are patent There is a moderate (60%) stenosis at the origin of the right internal carotid artery by NASCET criteria. This is caused by calcified plaque with a 1.7mm residual lumen. There is a mild (<50%) stenosis at the origin of the left internal carotid artery by NASCET criteria. This is caused by calcified plaque with a <2mm residual lumen. The rest of the cervical segments of the internal carotid arteries are patent up to their intracranial segments. The intracranial segments of the internal carotid arteries are patent. The left vertebral artery is dominant. The cervical segments of the vertebral arteries are patent. The intracranial segments of the vertebral arteries are patent. There is normal opacification of major intracranial venous structures. The visualized lung apices are unremarkable The thyroid gland demonstrates a 1.6cm hypodense lesion in its left lobe. The soft tissues of the neck are unremarkable. There are degenerative changes in the cervical spine. IMPRESSION: 1. No proximal intracranial large vessel occlusion. 2. Mild diffuse intracranial atherosclerosis. 3. Moderate (60%) stenosis at the origin of the right internal carotid artery by NASCET criteria caused by calcified plaque with a 1.7mm residual lumen. This appears increased from the 05/2019 MRA. 4. Unchanged mild (<50%) stenosis at the origin of the left internal carotid artery by NASCET criteria caused by calcified plaque with a <2mm residual lumen. 5. 1.6cm hypodense lesion in the left thyroid lobe. This could be further assessed with ultrasound, if clinically indicated. Please note that all CT scans at this facility use dose modulation, iterative reconstruction, and/or weight-based dosing when appropriate to reduce radiation dose to as low as reasonably achievable. Dictated by Sonya Fontana MD @ 03/14/2021 2:35:[address] Sonya Fontana @ Mar 14 2021 2:35PM
--- NOTE | 2021-03-14 15:11 | CR ---
HISTORY: Weakness. TECHNIQUE: Portable frontal view the chest. COMPARISON: Chest x-ray 01/09/2018. FINDINGS: No airspace consolidation. No pleural effusion or pneumothorax. Pulmonary vasculature is within normal limits. Cardiomediastinal silhouette size is normal for technique. Tortuous aorta with atherosclerotic calcifications. Degenerative changes of the spine. IMPRESSION: No acute cardiopulmonary abnormality. Dictated by Abdiel Leo MD @ 03/14/2021 3:08:[address] Abdiel Leo @ Mar 14 2021 3:08PM
[2021-03-14 16:03] VITALS: BP 132/78; PULSE 84
== END 2021-03-14 15:41 | disposition home or self-care (01) ==
LOC: MW.ED 13:47
DX: R53.83 Other fatigue (principal); I10 Essential (primary) hypertension; E11.9 Type 2 diabetes mellitus without complications; Z88.5 Allergy status to narcotic agent; Z91.040 Latex allergy status; Z79.82 Long term (current) use of aspirin; Z79.84 Long term (current) use of oral hypoglycemic drugs; Z79.899 Other long term (current) drug therapy
CPT/HCPCS: 36415; 70450; 70496; 70498; 71045; 80053; 83735; 84443; 84484; 85025; 85610; 85730; 93005; 99285; Q9967; 93010; 99283